=== PATIENT | male | born 1945 | race Caucasian/White ===

== ENCOUNTER 2016-05-07 05:22 | Day surgery (SDC) | payer MEDICARE ==
--- NOTE | ~2016-05-07 | EGD ---
EGD REPORT [facility] [address] [address] NAME: SCOTTIE PELAYO JR : 45 STATUS : REG [facility]#: [id number] AGE: 70 ADM/REG DATE : 05/07/16 MR#: [id number] REPORT SERV DATE: 05/07/16 DICTATED BY: SYL MINAYA DATE: 05/07/16 REPORT STATUS : Draft TRANSCRIBED BY: [employer] DATE: 05/07/16 [facility] Patient Name: Scottie Pelayo Date of : 1945 Attending MD: SYL MINAYA, Procedure Date No Time: 05/07/2016 Procedure: Colonoscopy Indications: High risk colon cancer surveillance: Personal history of colonic polyps Referring MD: POLI KAYE Medicines: Monitored Anesthesia Care Complications: No immediate complications. Estimated blood loss: None. Procedure: Pre-Anesthesia Assessment: - ASA Grade Assessment: III - A patient with severe systemic disease. After I obtained informed consent, the scope was passed under direct vision. Throughout the procedure, the patient's blood pressure, pulse, and oxygen saturations were monitored continuously. The CF [id number] was introduced through the anus with the intention of advancing to the cecum. The scope was advanced to the hepatic flexure before the procedure was aborted. Medications were given. The colonoscopy was performed without difficulty. The patient tolerated the procedure well. The quality of the bowel preparation was inadequate. Findings: The perianal and digital rectal examinations were normal. Solid stool was found in the descending colon, in the transverse colon and in the ascending colon, precluding visualization. The exam was otherwise without abnormality. Impression: - Preparation of the colon was inadequate. - Stool in the descending colon, in the transverse colon and in the ascending colon. - The examination was otherwise normal. Recommendation: - Patient has a contact number available for emergencies. The signs and symptoms of potential delayed complications were discussed with the patient. Return to normal activities tomorrow. Written discharge instructions were provided to the patient. - Return to previous diet. - Continue present medications. EGD REPORT [address] [address] NAME: SCOTTIE PELAYO : [birth year] STATUS : REG [facility]#: [id number] AGE: 70 ADM/REG DATE : 05/07/16 MR#: [id number] REPORT SERV DATE: 05/07/16 DICTATED BY: SYL MINAYA DATE: 05/07/16 REPORT STATUS : Draft TRANSCRIBED BY: [employer] DATE: 05/07/16 - Repeat colonoscopy at appointment to be scheduled because the bowel preparation was poor. Procedure Code(s): --- Professional --- 87330, 53, Colonoscopy, flexible, proximal to splenic flexure; diagnostic, with or without collection of specimen(s) by brushing or washing, with or without colon decompression (separate procedure) Diagnosis Code(s): --- Professional --- Z86.010, Personal history of colonic polyps CPT copyright 2013 [employer]. All rights reserved. The codes documented in this report are preliminary and upon engineered wood designer review may be revised to meet current compliance requirements. SYL MINAYA, 05/07/2016 7:25 AM Number of Addenda: 0 Note Initiated On: 05/07/2016 7:01 AM Scope Withdrawal Time 0 hours 0 minutes 0 seconds
[~2016-05-07 05:22] MED LIST: COREG12 PO; GLUCPH8 PO; MAX25 PO; MULTIPLE VIT PO; NEUR100 PO; PROVHFA INH; ZOCOR40 PO
[2016-05-29] MEDS ORDERED: FLOMAX4 PO (13:34)
[2016-05-29] MEDS ORDERED: NEUR600 PO (13:35)
[2016-05-29] MEDS ORDERED: CENTRUM PO (13:36)
== END 2016-05-07 23:59 | disposition home or self-care (01) ==
LOC: DMU 05:22
PROVIDERS: Internal Medicine Gastroenterology
PROC: 0DJD8ZZ Inspection of Lower Intestinal Tract, Via Natural or Artificial Opening Endoscopic (ICD-10-PCS; principal; 2016-05-07 07:00)
DX: Z12.11 Encounter for screening for malignant neoplasm of colon (principal); Z86.010 Personal history of colon polyps; I10 Essential (primary) hypertension; E11.9 Type 2 diabetes mellitus without complications; I25.2 Old myocardial infarction; Z86.73 Personal history of transient ischemic attack (TIA), and cerebral infarction without residual deficits
CPT/HCPCS: 82962

== ENCOUNTER 2016-06-11 05:55 | Day surgery (SDC) | payer MEDICARE ==
--- NOTE | ~2016-06-11 | EGD ---
EGD REPORT [facility] [address] [address] NAME: SCOTTIE PELAYO JR : [birth year] STATUS : REG [facility]#: [id number] AGE: 70 ADM/REG DATE : 06/11/16 MR#: [id number] REPORT SERV DATE: 06/11/16 DICTATED BY: SYL MINAYA DATE: 06/11/16 REPORT STATUS : Draft TRANSCRIBED BY: [employer] DATE: 06/11/16 Endoscopy Center Patient Name: Scottie Pelayo Date of : 1945 Attending MD: SYL MINAYA, Procedure Date No Time: 06/11/2016 Procedure: Colonoscopy Indications: High risk colon cancer surveillance: Personal history of colonic polyps Referring MD: POLI KAYE Medicines: Monitored Anesthesia Care Complications: No immediate complications. Estimated blood loss: None. Procedure: Pre-Anesthesia Assessment: - ASA Grade Assessment: III - A patient with severe systemic disease. After I obtained informed consent, the scope was passed under direct vision. Throughout the procedure, the patient's blood pressure, pulse, and oxygen saturations were monitored continuously. The CF [id number] was introduced through the anus and advanced to the cecum, identified by appendiceal orifice and ileocecal valve. The colonoscopy was performed without difficulty. The patient tolerated the procedure well. The quality of the bowel preparation was good. Findings: The perianal and digital rectal examinations were normal. Many small-mouthed diverticula were found in the sigmoid colon and in the descending colon. A sessile polyp was found in the cecum. The polyp was 14 mm in size. The polyp was removed with a hot snare. Resection and retrieval were complete. Verification of patient identification for the specimen was done. Estimated blood loss was minimal. A sessile polyp was found in the sigmoid colon. The polyp was 5 mm in size. The polyp was removed with a cold snare. Resection and retrieval were complete. Verification of patient identification for the specimen was done. Estimated blood loss was minimal. Internal hemorrhoids were found during retroflexion and were Grade I (internal hemorrhoids that do not prolapse). The exam was otherwise without abnormality on direct and retroflexion views. Impression: - Diverticulosis in the sigmoid colon and in the descending colon. - One 14 mm polyp in the cecum. Resected and retrieved. EGD REPORT [address] [place]. [address] NAME: SCOTTIE PELAYO : [birth year] STATUS : REG [facility] PAT#: [id number] AGE: 70 ADM/REG DATE : 06/11/16 MR#: [id number] REPORT SERV DATE: 06/11/16 DICTATED BY: SYL MINAYA DATE: 06/11/16 REPORT STATUS : Draft TRANSCRIBED BY: [employer] DATE: 06/11/16 - One 5 mm polyp in the sigmoid colon. Resected and retrieved. - Internal hemorrhoids. - The examination was otherwise normal on direct and retroflexion views. Recommendation: - Patient has a contact number available for emergencies. The signs and symptoms of potential delayed complications were discussed with the patient. Return to normal activities tomorrow. Written discharge instructions were provided to the patient. - Return to previous diet. - Continue present medications. - Await pathology results. - Repeat colonoscopy for surveillance based on pathology results. Procedure Code(s): --- Professional --- 27457, Colonoscopy, flexible, proximal to splenic flexure; with removal of tumor(s), polyp(s), or other lesion(s) by snare technique Diagnosis Code(s): --- Professional --- K64.0, First degree hemorrhoids K57.30, Diverticulosis of large intestine without perforation or abscess without bleeding D12.5, Benign neoplasm of sigmoid colon D12.0, Benign neoplasm of cecum Z86.010, Personal history of colonic polyps CPT copyright 2013 [employer]. All rights reserved. The codes documented in this report are preliminary and upon death surveys coder review may be revised to meet current compliance requirements. SYL MINAYA, 06/11/2016 7:46 AM Number of Addenda: 0 Note Initiated On: 06/11/2016 7:06 AM Scope Withdrawal Time 0 hours 21 minutes 40 seconds [address] [address]
[~2016-06-11 05:55] MED LIST changes: +CENTRUM PO; +FLOMAX4 PO; +NEUR600 PO
== END 2016-06-11 23:59 | disposition home or self-care (01) ==
LOC: DMU 05:55
PROVIDERS: Internal Medicine Gastroenterology
PROC: 0DBN8ZZ Excision of Sigmoid Colon, Via Natural or Artificial Opening Endoscopic (ICD-10-PCS; 2016-06-11)
PROC: 0DBH8ZZ Excision of Cecum, Via Natural or Artificial Opening Endoscopic (ICD-10-PCS; principal; 2016-06-11 07:30)
DX: D12.5 Benign neoplasm of sigmoid colon (principal); D12.0 Benign neoplasm of cecum; Z86.010 Personal history of colon polyps; K57.30 Diverticulosis of large intestine without perforation or abscess without bleeding; K64.0 First degree hemorrhoids; I25.2 Old myocardial infarction; E11.9 Type 2 diabetes mellitus without complications; E78.00 Pure hypercholesterolemia, unspecified; J44.9 Chronic obstructive pulmonary disease, unspecified; G62.9 Polyneuropathy, unspecified; M19.90 Unspecified osteoarthritis, unspecified site; H91.90 Unspecified hearing loss, unspecified ear; Z86.73 Personal history of transient ischemic attack (TIA), and cerebral infarction without residual deficits; Z79.84 Long term (current) use of oral hypoglycemic drugs; Z79.899 Other long term (current) drug therapy; Z87.891 Personal history of nicotine dependence; Z98.41 Cataract extraction status, right eye; Z98.42 Cataract extraction status, left eye; Z96.1 Presence of intraocular lens; Z97.2 Presence of dental prosthetic device (complete) (partial); Z98.890 Other specified postprocedural states
CPT/HCPCS: 82962; 88305